=== PATIENT | female | born 1950 | race Caucasian/White ===

== ENCOUNTER → 2019-03-11 | Outpatient (CLI) | payer MEDICARE | LOC: COL.PUL 11:20 | DX: J43.8 Other emphysema (principal); Z87.891 Personal history of nicotine dependence ==

== ENCOUNTER 2019-08-04 14:19 | Inpatient (IN) | payer MEDICARE ==
[~2019-08-04] VITALS: Ht 167.6 cm; Wt 108.3 kg
[2019-08-04 15:45] LABS: HEMATOCRIT 44.7 % (37.0-47.0); MEAN CELL VOLUME 89 fl (80.0-100.0); MEAN CORPUSCULAR HEMOGLOBIN 28 pg (27.0-31.0); MEAN CORPUSCULAR HGB CONC 31 g/dl (33.0-37.0); MEAN PLATELET VOLUME 9.1 fl (7.4-10.4); PLATELET COUNT 424 K/mm3 (130-400); RED BLOOD COUNT 5.02 M/mm3 (4.10-5.30); REDCELL DISTRIBUTION WIDTH-CV 13.9 % (11.5-14.5)
[2019-08-04 15:55] LABS: ALANINE AMINOTRANSFERASE 63 U/L (9-52); ALBUMIN 3.8 gm/dL (3.5-5.0); ALKALINE PHOSPHATASE 82 U/L (50-136); ANION GAP 10 mmol/L (7-16); AST,SGOT 27 U/L (15-37); BILIRUBIN,TOTAL 0.4 mg/dL (0.0-1.0); BLOOD UREA NITROGEN 60 mg/dL (7-17); CALCIUM 9.1 mg/dL (8.4-10.2); CARBON DIOXIDE 31 mmol/L (22-30); CHLORIDE 93 mmol/L (98-107); CREATININE, serum 1.73 (0.52-1.25); GLUCOSE 105 mg/dL (74-106); POTASSIUM 3.6 mmol/L (3.4-5.0); SODIUM 135 mmol/L (137-145); TOTAL PROTEIN 6.4 gm/dL (6.4-8.2)
[2019-08-04 15:59] LABS: C-REACTIVE PROTEIN < 0.5 mg/dL (0.0-0.9)
[2019-08-04 16:06] LABS: TROPONIN-I < 0.012 ng/mL (0.000-0.035)
[2019-08-04 16:06] LABS: COLLECTION METHOD CLEAN CATCH
[2019-08-04 16:12] LABS: PH 5 (5-8); SQUAMOUS EPITHELIAL None Seen /hpf; URINE APPEARANCE Cloudy; URINE BACTERIA None Seen /hpf; URINE BILIRUBIN Negative (NEGATIVE); URINE BLOOD Negative (NEGATIVE); URINE COLOR Yellow; URINE GLUCOSE Negative (NEGATIVE); URINE KETONE Negative (NEGATIVE); URINE LEUKOCYTE ESTERASE 1+ (NEGATIVE); URINE NITRATE Negative (NEGATIVE); URINE PROTEIN(semi-quant) Negative (NEGATIVE); URINE RBC 0-2 /hpf; URINE UROBILINOGEN Negative (NEGATIVE)
[2019-08-04 16:15] LABS: BAND 1 % (0-10); LYMPHOCYTE 16 % (20.0-51.0); METAMYELOCYTE 1 % (0-0); NEUTROPHILS 76 % (42.0-75.2)
[2019-08-04 16:19] LABS: ANISOCYTOSIS 1+; PLATELET ESTIMATE INCREASED (NORMAL)
[2019-08-04 16:20] LABS: HYPOCHROMIA 1+
[2019-08-04] MEDS ORDERED: PROAIR HFA0.09 MG/AC IH (16:41)
[2019-08-04] MEDS ORDERED: LOTRISONE CREAM15 GM TP (16:43)
[2019-08-04] MEDS ORDERED: CYMBALTA 60MG60 MG PO (16:44)
[2019-08-04] MEDS ORDERED: ALLEGRA 180MG180 MG PO (16:44)
[2019-08-04] MEDS ORDERED: BREO IH (16:45)
[2019-08-04] MEDS ORDERED: NEURONTIN300 MG/CAP PO (16:46)
[2019-08-04] MEDS ORDERED: HCTZ 25MG TAB25 MG PO (16:46)
[2019-08-04] MEDS ORDERED: DILAUDID 2MG TAB2 MG PO (16:48)
[2019-08-04] MEDS ORDERED: MS CONTIN100 MG PO (16:49)
[2019-08-04] MEDS ORDERED: NYSTATIN POWDER30 GM TOP (16:50)
[2019-08-04] MEDS ORDERED: PRILOSEC 20MG20 MG PO (16:51)
[2019-08-04] MEDS ORDERED: RT SPIRIVA18 MCG IH (16:52)
[2019-08-04] MEDS ORDERED: DETROL LA4 PO (16:53)
[2019-08-04] MEDS ORDERED: VITAMIN D 50,1.25 MG PO (16:56)
[2019-08-04] MEDS ORDERED: ZESTRIL40 MG PO (17:47)
[2019-08-04] MEDS ORDERED: SYNTHROID0.05 MG/TA PO (17:48)
[2019-08-04 18:19] VITALS: BP 132/89; PULSE 89; TEMP 98.8
--- NOTE | 2019-08-04 18:22 | NUR ---
Pt arrives to medical unit rm [id number] from ED, drowsy, alert briefly to stimuli, slurred speech, answers questions appropriately. O2 2 L/min via NC. Saline lock IV to left AC without s/s of complications. Noted tremors in ext x 4. Pt's son at bedside, gives brief background of current situation.
[2019-08-04 19:11] VITALS: BP 93/45; PULSE 95; TEMP 98.3
[2019-08-04] MEDS ORDERED: PREDNISONE20 MG PO (21:11)
[2019-08-04 23:34] VITALS: BP 156/85; PULSE 93; TEMP 97.6
[2019-08-05 03:44] VITALS: BP 139/62; PULSE 82; TEMP 98
[2019-08-05 06:33] LABS: HEMATOCRIT 42.8 % (37.0-47.0); HEMOGLOBIN 13.6 g/dl (12.5-16.0); MEAN CELL VOLUME 89 fl (80.0-100.0); MEAN CORPUSCULAR HEMOGLOBIN 28 pg (27.0-31.0); MEAN CORPUSCULAR HGB CONC 32 g/dl (33.0-37.0); RED BLOOD COUNT 4.79 M/mm3 (4.10-5.30); REDCELL DISTRIBUTION WIDTH-CV 13.8 % (11.5-14.5)
[2019-08-05 06:34] LABS: PLATELET COUNT 299 K/mm3 (130-400)
[2019-08-05 06:36] LABS: ALBUMIN 3.5 gm/dL (3.5-5.0); BILIRUBIN,TOTAL 0.4 mg/dL (0.0-1.0); CREATININE, serum 1.07 (0.52-1.25); POTASSIUM 3.6 mmol/L (3.4-5.0); TOTAL PROTEIN 6.1 gm/dL (6.4-8.2)
[2019-08-05 07:32] LABS: EOSINOPHIL 1 % (0-4); LYMPHOCYTE 40 % (20.0-51.0); NEUTROPHILS 51 % (42.0-75.2)
[2019-08-05 07:33] LABS: PLATELET ESTIMATE NORMAL (NORMAL)
--- NOTE | 2019-08-05 08:01 | NUR ---
Pt son at bedside thru the night. Very concerned about pt's medications. Pt can be talking and then drifts into a sleep and wakes up shortly after. O2 on at 2L/NC. Bed alarm on at all times. Son left early this AM for his job but plans to return to be here for rounds. Call light within reach.
[2019-08-05 08:13] VITALS: BP 116/55; PULSE 87; TEMP 98.7
[2019-08-05 08:23] LABS: PATHOLOGY DIFF REVIEW OK
--- NOTE | 2019-08-05 10:02 | NUR ---
CASI met with the patient and the patient's son, Star (ph#[phone]), to discuss discharge plan. The patient lives in [place] with her son, Star. She reports needing some help with bathing and has a cane and walker. The patient states that she has [facility] [place] [facility] and that they come out a couple times a week. CASI contacted and confirmed services from Erendira at [facility]. CASI faxed updates to [facility]. The patient's PCP is Dr. Jean-Paul Thomas and she receives her medications at [facility]. She reports no difficulties obtaining her meds. The patient does not have advanced directives in EMR, but her son states that she does have them completed and at home. He states that he is the patient's DPOA-HC and that he will bring a copy to the hospital. The patient plans to return back home with her son upon discharge and resume home health through [facility]. SW to continue to follow.
--- NOTE | 2019-08-05 11:36 | NUR ---
First visit from the medical office clerk. prayed with patient. No other needs right now.
[2019-08-05 12:08] VITALS: BP 142/67; PULSE 77; TEMP 98.7
--- NOTE | 2019-08-05 12:41 | NUR ---
Pt awake upon entry, shift assessments complete, left Pt call light in reach, bed in lowest position.
[2019-08-05] MEDS ORDERED: MS CONTIN 660 MG/TAB PO (12:58)
--- NOTE | 2019-08-05 13:31 | NUR ---
PT ON O2 @ 2 LPM AT REST. O2 OFF APPROX 5 MINUTES SPO2 DROPPED TO 84% AT REST. O2 BACK ON @ 2 LPM NC.
--- NOTE | 2019-08-05 15:48 | NUR ---
The patient qualified for continuous oxygen. CASI met with the patient and the patient's son, Star, to discuss DME options and presented and explained the Patient Choice Form for DME. The patient and her son chose [facility]. Patient Choice Form signed by the patient and she was provided a copy. CASI contacted and faxed the oxygen order to [facility]. The patient's son plans to clam picker the oxygen from [facility]. CASI notified [facility] of this. The patient's son also had concerns about getting prior-auth on one of the patient's medications. CASI notified RN Radio Intelligence Operator, Martine and Leslye. Reference number was obtained and provided to the patient's preferred pharmacy. The patient is to discharge back home with her son today, 08/05, and resume home health services for chcf/PT/OT through [facility]. CASI contacted and faxed the patient's discharge orders to Erendira at [facility]. No additional needs at this time.
--- NOTE | 2019-08-05 16:30 | NUR ---
Pt discharged to home, escorted to entrance, left with family via private auto.
== END 2019-08-05 16:30 | disposition home health service (06) | DRG 682 ==
LOC: COL.ER 14:19 → MEDICAL 16:32
PROVIDERS: Emergency Medicine; Physician Assistant; ADMIT Family Medicine
DX: N17.9 Acute kidney failure, unspecified (principal); J96.01 Acute respiratory failure with hypoxia; E87.3 Alkalosis; E87.1 Hypo-osmolality and hyponatremia; G89.29 Other chronic pain; F32.9 Major depressive disorder, single episode, unspecified; F41.9 Anxiety disorder, unspecified; E03.9 Hypothyroidism, unspecified; T45.0X5A Adverse effect of antiallergic and antiemetic drugs, initial encounter; T46.4X5A Adverse effect of angiotensin-converting-enzyme inhibitors, initial encounter; I10 Essential (primary) hypertension; E87.8 Other disorders of electrolyte and fluid balance, not elsewhere classified; G47.33 Obstructive sleep apnea (adult) (pediatric); D72.829 Elevated white blood cell count, unspecified; R25.8 Other abnormal involuntary movements; J44.9 Chronic obstructive pulmonary disease, unspecified; Z87.891 Personal history of nicotine dependence; Z88.0 Allergy status to penicillin; Z88.3 Allergy status to other anti-infective agents
CPT/HCPCS: 99222-AI; 99239; J1644; J7030

== ENCOUNTER → 2021-05-18 | Outpatient (CLI) | payer MEDICARE ==
[~2021-05-18] MED LIST: ALLEGRA 180MG180 MG PO; BREO IH; CYMBALTA 60MG60 MG PO; DETROL LA4 PO; DILAUDID 2MG TAB2 MG PO; HCTZ 25MG TAB25 MG PO; LOTRISONE CREAM15 GM TP; MS CONTIN 660 MG/TAB PO; MS CONTIN100 MG PO; NEURONTIN300 MG/CAP PO; NYSTATIN POWDER30 GM TOP; PREDNISONE20 MG PO; PRILOSEC 20MG20 MG PO; PROAIR HFA0.09 MG/AC IH; RT SPIRIVA18 MCG IH; SYNTHROID0.05 MG/TA PO; VITAMIN D 50,1.25 MG PO; ZESTRIL40 MG PO
--- NOTE | 2021-05-18 11:45 | NUR ---
PATIENT WILL NEED TO RESCHEDULE TO TOOK INHALER 3.5 HOURS BEFORE TEST.
== END ==
LOC: COL.PUL 11:13
DX: R06.02 Shortness of breath (principal)

== ENCOUNTER → 2021-06-18 | Outpatient (CLI) | payer MEDICARE | LOC: COL.PUL 06-08 08:00 | DX: R06.02 Shortness of breath (principal); Z87.891 Personal history of nicotine dependence ==